=== PATIENT | male | born 1930 | race Caucasian/White ===

== ENCOUNTER 2018-12-05 08:44 | Observation (INO) ==
--- NOTE | 2018-12-05 08:56 | Emergency Department Note ---
ED Disposition Clinical Impression: Chest pain Qualifiers: Chest pain type: precordial pain Qualified Code(s): R07.2 - Precordial pain Disposition: Admitted as Observation Condition on Discharge: Good - Critical Care Critical Care Time: No Attestation: On , the high probability of a clinically significant, sudden or life threatening deterioration of the following system(s) required my full and direct attention, intervention and personal management. The time I documented below is in addition to time spent performing reported procedures but includes the following listed in this critical care notation. Medical Decision Making - Medical Records Medical records reviewed: Yes: I reviewed the patient's medical records. - Anthony Inquiry Pt receiving controlled substance: No Vital Signs: 12/05/18 08:45 12/05/18 09:45 12/05/18 10:30 Temperature 98.0 F Temperature Source Oral Pulse Rate [Right Brachial] 55 L 59 L 57 L Respiratory Rate 18 Blood Pressure [Right Arm] 137/82 126/71 120/83 Blood Pressure Mean [Right Arm] 100 89 95 Blood Pressure Source [Right Arm] Automatic Cuff Blood Pressure Position [Right Arm] Sitting 02 Sat by Pulse Oximetry 97 95 97 Oxygen Delivery Method Room Air 12/05/18 10:54 Temperature Temperature Source Pulse Rate [Right Brachial] 64 Respiratory Rate Blood Pressure [Right Arm] 119/83 Blood Pressure Mean [Right Arm] 95 Blood Pressure Source [Right Arm] Blood Pressure Position [Right Arm] 02 Sat by Pulse Oximetry 94 L Oxygen Delivery Method - Lab Data Lab results reviewed: Yes: I reviewed the patient's lab results. Lab Results 12/05/18 08:50: WBC 8.5, RBC 5.22, Hgb 15.6, Hct 45.3, MCV 86.8, MCH 29.9, MCHC 34.5, RDW 13.3, Plt Count 214, MPV 8.5, Neut % (Auto) 69.8, Lymph % (Auto) 21.1, [place] % (Auto) 6.9, Eos % (Auto) 1.3, Baso % (Auto) 0.9, Neut # (Auto) 5.9, Lymph # (Auto) 1.8, [place] # (Auto) 0.6, Eos # (Auto) 0.1, Baso # (Auto) 0.1 12/05/18 08:50: Sodium 139, Potassium 4.5, Chloride 102, Carbon Dioxide 30, Anion Gap 11.5, BUN 18, Creatinine 0.84, Estimated Creat Clear 57, Estimated GFR 86, Est GFR ( Amer) 104, Glucose 130 H, Calcium 8.8, Total Bilirubin 0.7, AST 20, ALT 23, Alkaline Phosphatase 65, Troponin I < 0.02, Total Protein 7.2, Albumin 4.1, Globulin 3.1, Albumin/Globulin Ratio 1.3, Lipase 80 12/05/18 08:50: D-Dimer 172 Result diagrams: 12/05/18 08:50 12/05/18 08:50 Orders (Tests/Meds): ED MEDICATIONS Discontinued Medications Generic Name Dose Route Start Last Admin Trade Name Freq PRN Reason Stop Dose Admin Aspirin 324 mg 12/05/18 08:52 12/05/18 09:12 Aspirin 81mg Chewable Tablet PO 12/05/18 08:53 324 mg ONCE ONE Administration Pantoprazole Sodium 40 mg 12/05/18 08:52 12/05/18 09:12 Protonix 40mg Vial IV 12/05/18 08:53 40 mg ONCE ONE Administration Sodium Chloride 8 ml 12/05/18 08:52 12/05/18 09:13 Saline Flush 10ml Syringe IV 12/05/18 08:53 8 ml ONCE ONE Administration - Radiology Data #1 Image(s): Chest Image Reviewed: Yes I have reviewed radiologist's interpretation Preliminary Findings: Abnormal (enlarged cardiac som) - ECG Data Tracing #1 I reviewed this ECG and interpreted as documented below: Normal Sinus Rhythm: Yes (no stemi, +lvh and pvc) Medical Decision Narrative: admit d/w Dr Mesa, differential includes acs and gerd General Adult HPI - General Chief complaint: Chest Pain Stated complaint: heartburn Time Seen by Provider: 12/05/18 08:53 Mode of Arrival: Family Vehicle Limitations: No Limitations Description of Symptoms (Recalled from ER Triage Doc. by RN): chest discomfort, heartburn all morning - History of Present Illness HPI narrative: mild to mod off and on anterior chest pain burning sensation for one day, nonrad, no fever, no NV, no injury, no hx NH - Related Data Allergies Allergy/AdvReac Type Severity Reaction Status Date / Time No Known Allergies Allergy Unknown Uncoded 06/24/17 15:22 [facility] History - Hepatitis A Screen Drug use history?: No High risk sexual behaviors?: No History of sexually transmitted infection?: No Currently employed?: No Childcare worker?: No Do you have indoor plumbing?: Yes Do you have electricity?: Yes Attestation statement:: This patient has been screened for Hepatitis A risk factors. ROS Obtained: Yes Systems reviewed as appropriate & no additional complaints - Constitutional Constitutional: Denies fever(s) - Eyes Eyes: Denies change in vision - ENT Ears, Nose, Mouth, and Throat: Denies hoarseness - Cardiovascular Cardiovascular: Reports chest pain - Respiratory Respiratory: No dyspnea - Gastrointestinal Gastrointestingal: Denies: abdominal pain - Musculoskeletal Musculoskeletal: Denies neck pain - Integumentary/Breasts Skin/Breast: Denies wounds - Neurologic Neurologic: Denies dizziness Physical Exam - General General appearance: alert, in no apparent distress - Head Head exam: normocephalic - Eye Eye exam: Present: normal appearance - ENT ENT exam: Present: normal exam - Neck Neck exam: Present: normal inspection - Chest Chest inspection: Present: normal inspection - Respiratory Respiratory exam: Present: normal lung sounds bilaterally - Cardiovascular Cardiovascular exam: Present: regular rate, normal rhythm - Abdominal Exam Abdominal exam: Present: soft. Absent: distention, tenderness - Extremities Exam Extremities exam: Present: normal inspection - Back Exam Back exam: Absent: vertebral tenderness - Neurological Exam Neurological exam: Present: alert, oriented X3 - Psychiatric Psychiatric exam: Present: normal affect, normal mood - Skin Skin exam: Present: warm, dry
[2018-12-05 09:11] LABS: Basophils # 0.1 K/mm3 (0-0.2); Basophils % 0.9 % (0.1-2.0); Eosinophils # 0.1 K/mm3 (0.0-0.4); Eosinophils % 1.3 % (0.1-12.0); Hematocrit 45.3 % (42.0-52.0); Hemoglobin 15.6 g/dL (14.1-18.0); Lymphocytes # 1.8 K/mm3 (0.7-4.5); Lymphocytes % 21.1 % (10-50); Mean Corpuscular HGB Conc 34.5 g/dL (31.8-35.4); Mean Corpuscular Hemoglobin 29.9 pg (27.0-31.2); Mean Corpuscular Volume 86.8 fl (80-94); Mean Platelet Volume 8.5 fl (7.4-10.4); Monocytes # 0.6 K/mm3 (0.1-1.0); Monocytes % 6.9 % (1.7-9.3); Neutrophils # 5.9 K/mm3 (1.8-7.8); Neutrophils % 69.8 % (37.0-80.0); Platelet Count 214 K/mm3 (142-424); Red Blood Count 5.22 M/mm3 (4.60-6.20); Red Cell Distribution Width 13.3 % (11.5-17.5); White Blood Count 8.5 K/mm3 (4.8-10.8)
[2018-12-05 09:23] LABS: Alanine Aminotransferase 23 U/L (12-78); Albumin Level 4.1 gm/dL (3.4-5.0); Albumin/Globulin Ratio 1.3 (1.1-1.8); Alkaline Phosphatase 65 U/L (46-116); Anion Gap 11.5 mEq/L (5-15); Aspartate Amino Transferase 20 U/L (15-37); Bilirubin,Total 0.7 mg/dL (0.2-1.0); Blood Urea Nitrogen 18 mg/dL (7-18); Calcium 8.8 mg/dL (8.5-10.1); Carbon Dioxide 30 mmol/L (21.0-32.0); Chloride 102 mmol/L (98-107); Globulin 3.1 gm/dl (1.3-3.2); Glucose 130 mg/dL (74-106); Lipase 80 u/L (73-393); Potassium 4.5 mmoL/L (3.5-5.1); Sodium 139 mmol/L (136-145); Total Protein,Serum 7.2 gm/dL (6.4-8.2)
--- NOTE | 2018-12-05 14:05 | History & Physical Report ---
*Admission Date: 12/05/18 *Chief complaint: Chest pain *History of present illness: This 88-year-old white male presented to the emergency room complaining of chest pain off and on for the past 2 days. He was admitted to rule out acute coronary syndrome. He has known aortic stenosis. This has been followed by Dr. Galvan in the past. The patient has had a recent glycohemoglobin of 6.2% indicating diabetes mellitus. He had documented episode of supraventricular tachycardia in 2013. He has hypothyroidism. [facility] History Medical History: Reports:: Heart Murmur, Hyperlipidemia, Hypertension *Have you ever received a pneumonia vaccine?: Yes *Have you received a flu vaccine this season?: Yes Other Surgeries: Yes: Hernia Repair, Other (prostate, vericose vein) - *Social History Educational Level: Attended Grade School Alcohol Intake: never *Occupational Status:: retired Housing: house Household Members: spouse *Travel in the last 8 weeks: None - Psychiatric History Expresses thoughts of harming self/others: None Suicide Plan Description: No Plan Family Hx:: Unable to obtain Review of Systems - Constitutional Denies body ache(s), Denies chills, Denies weakness - Eyes Denies change in vision - ENT Reports abnormal hearing, Reports hearing loss, Denies difficulty swallowing, Denies throat swelling - *Cardiovascular Reports chest pain, Reports chest pain at rest, Denies chest pain with activity, Denies irregular heart rhythm, Denies rapid, pounding, or irregular heartbeat - *Respiratory Denies chest congestion, Denies cough, Denies shortness of breath - *Gastrointestinal Reports heartburn, Denies abdominal pain, Denies change in bowel habits, Denies vomiting blood, Denies black, tarry stools, Denies nausea - *Genitourinary Denies difficulty urinating - *Musculoskeletal Denies abnormal walking - *Neurologic Denies dizziness Meds Home Medications Medication Instructions Recorded Confirmed Type Aspirin [Adult Low Dose Aspirin EC] 81 mg PO HS 12/05/18 12/05/18 History Atorvastatin Calcium [Atorvastatin 10 mg PO HS 12/05/18 12/05/18 History 10mg Tab] Levothyroxine Sodium 25 mcg PO DAILY 12/05/18 12/05/18 History [Levothyroxine 25mcg (0.025mg) Tab] Metoprolol Succinate 50 mg PO HS 12/05/18 12/05/18 History Allergies Allergy/AdvReac Type Severity Reaction Status Date / Time No Known Allergies Allergy Unknown Uncoded 06/24/17 15:22 Exam Vital signs and Labs for Last 24 Hours: Temp Pulse Resp BP Pulse Ox 97.9 F 67 17 150/93 H 98 12/05/18 11:40 12/05/18 11:40 12/05/18 11:40 12/05/18 11:40 12/05/18 11:40 Laboratory Results - last 24 hr 12/05/18 08:50: WBC 8.5, RBC 5.22, Hgb 15.6, Hct 45.3, MCV 86.8, MCH 29.9, MCHC 34.5, RDW 13.3, Plt Count 214, MPV 8.5, Neut % (Auto) 69.8, Lymph % (Auto) 21.1, [place] % (Auto) 6.9, Eos % (Auto) 1.3, Baso % (Auto) 0.9, Neut # (Auto) 5.9, Lymph # (Auto) 1.8, [place] # (Auto) 0.6, Eos # (Auto) 0.1, Baso # (Auto) 0.1 12/05/18 08:50: Sodium 139, Potassium 4.5, Chloride 102, Carbon Dioxide 30, Anion Gap 11.5, BUN 18, Creatinine 0.84, Estimated Creat Clear 57, Estimated GFR 86, Est GFR ( Amer) 104, Glucose 130 H, Calcium 8.8, Total Bilirubin 0.7, AST 20, ALT 23, Alkaline Phosphatase 65, Troponin I < 0.02, Total Protein 7.2, Albumin 4.1, Globulin 3.1, Albumin/Globulin Ratio 1.3, Lipase 80 12/05/18 08:50: D-Dimer 172 I & O for Last 24 hours: Intake & Output 12/03/18 12/04/18 12/05/18 12/06/18 11:59 11:59 11:59 11:59 Intake Total 360 / 360 Output Total 450 / 450 Balance -440 / -440 360 / 360 Weight 177 lb 8 oz - Constitutional no acute distress - *Routine HEENT Exam Head: Present: normocephalic Eye: Present: PERRL ENT: Present: mucous membranes moist - *Routine Neck Exam Present: supple. Absent: carotid bruit - Routine Chest/Breast/Axilla Exam Chest wall: Absent: tenderness - *Routine Respiratory Exam Present: CTA bilaterally. Absent: rales, wheezes - *Routine Cardiovascular Exam Present: RRR, murmur Comments: 3/6 high-pitched aortic murmur. No ectopics - *Routine Abdominal Exam Present: soft. Absent: tenderness - *Routine Extremities Exam Absent: edema - Routine Back/Spine/Pelvis Exam Back/Spine: Present: kyphosis (Mild dorsal kyphosis) - *Routine Skin Exam Present: intact - *Routine Neurological Exam Present: alert, oriented X3, normal speech. Absent: altered mental status Quite hard of hearing - Routine Psychiatric Exam Present: normal affect Assessment and Plan (1) Aortic stenosis Current visit: Yes Status: Acute Category: Medical Code(s): I35.0 - Nonrheumatic aortic (valve) stenosis (2) Hearing deficit Current visit: Yes Status: Acute Category: Medical Code(s): H91.90 - Unspecified hearing loss, unspecified ear (3) Type 2 diabetes mellitus Current visit: Yes Status: Acute Category: Medical Code(s): E11.9 - Type 2 diabetes mellitus without complications (4) Hypothyroidism (acquired) Current visit: Yes Status: Acute Category: Medical Code(s): E03.9 - Hypothyroidism, unspecified (5) Hypertension Current visit: Yes Status: Acute Category: Medical Code(s): I10 - Essential (primary) hypertension (6) Hyperlipidemia Current visit: Yes Status: Acute Category: Medical Code(s): E78.5 - Hyperlipidemia, unspecified (7) Chest pain Current visit: Yes Status: Acute Qualifiers: Chest pain type: precordial pain Qualified Code(s): R07.2 - Precordial pain Category: Medical Code(s): R07.9 - Chest pain, unspecified - Assessment and plan all Dx Assessment and Plan for all problems:: Cardiac telemetry. Serial troponins. The patient seems quite stable at this point.
[2018-12-06 06:32] LABS: Basophils # 0.1 K/mm3 (0-0.2); Basophils % 0.7 % (0.1-2.0); Eosinophils # 0.1 K/mm3 (0.0-0.4); Eosinophils % 1.7 % (0.1-12.0); Hematocrit 42.5 % (42.0-52.0); Hemoglobin 14.6 g/dL (14.1-18.0); Lymphocytes # 1.8 K/mm3 (0.7-4.5); Lymphocytes % 22.1 % (10-50); Mean Corpuscular HGB Conc 34.4 g/dL (31.8-35.4); Mean Corpuscular Volume 87.1 fl (80-94); Mean Platelet Volume 8.4 fl (7.4-10.4); Monocytes # 0.6 K/mm3 (0.1-1.0); Monocytes % 7.1 % (1.7-9.3); Neutrophils # 5.5 K/mm3 (1.8-7.8); Neutrophils % 68.4 % (37.0-80.0); Platelet Count 181 K/mm3 (142-424); Red Blood Count 4.88 M/mm3 (4.60-6.20); Red Cell Distribution Width 13.2 % (11.5-17.5); White Blood Count 8.1 K/mm3 (4.8-10.8)
[2018-12-06 06:37] LABS: Anion Gap 9.4 mEq/L (5-15); Calcium 8.8 mg/dL (8.5-10.1); Potassium 4.4 mmoL/L (3.5-5.1)
--- NOTE | 2018-12-06 10:46 | Progress Note ---
Internal Medicine - PN: Subj *Date: 12/06/18 *Time: 10:44 Interval history: Patient has done well overnight, no more chest discomfort or dyspepsia since starting Protonix. He is anxious to go home. Exam Vital signs and Labs for Last 24 Hours: Temp Pulse Resp BP Pulse Ox 98.3 F 84 18 136/78 95 12/06/18 07:14 12/06/18 08:00 12/06/18 07:14 12/06/18 07:14 12/06/18 07:14 Laboratory Results - last 24 hr 12/05/18 08:50: TSH 6.03 H 12/05/18 14:10: Troponin I < 0.02 12/05/18 17:30: Troponin I < 0.02 12/06/18 06:03: WBC 8.1, RBC 4.88, Hgb 14.6, Hct 42.5, MCV 87.1, MCH 30.0, MCHC 34.4, RDW 13.2, Plt Count 181, MPV 8.4, Neut % (Auto) 68.4, Lymph % (Auto) 22.1, [place] % (Auto) 7.1, Eos % (Auto) 1.7, Baso % (Auto) 0.7, Neut # (Auto) 5.5, Lymph # (Auto) 1.8, [place] # (Auto) 0.6, Eos # (Auto) 0.1, Baso # (Auto) 0.1 12/06/18 06:03: Sodium 140, Potassium 4.4, Chloride 105, Carbon Dioxide 30, Anion Gap 9.4, BUN 18, Creatinine 0.95, Estimated Creat Clear 61, Estimated GFR 75, Est GFR ( Amer) 91, Glucose 119 H, Calcium 8.8 Vital Signs - 24 hr 12/05/18 10:54 12/05/18 11:33 12/05/18 11:40 Temperature 98.0 F 97.9 F Pulse Rate 61 Pulse Rate [Left Radial] Pulse Rate [Right Brachial] 64 67 Respiratory Rate 15 17 Blood Pressure 119/75 Blood Pressure [Right Arm] 119/83 150/93 H 02 Sat by Pulse Oximetry 94 L 98 12/05/18 12:00 12/05/18 15:39 12/05/18 16:00 Temperature 98.3 F Pulse Rate 70 50 L Pulse Rate [Left Radial] Pulse Rate [Right Brachial] 58 L Respiratory Rate 16 Blood Pressure Blood Pressure [Right Arm] 117/60 02 Sat by Pulse Oximetry 96 12/05/18 19:58 12/05/18 20:00 12/06/18 00:00 Temperature 98.3 F 98.7 F Pulse Rate 50 L 60 Pulse Rate [Left Radial] 54 L 59 L Pulse Rate [Right Brachial] Respiratory Rate 18 18 Blood Pressure Blood Pressure [Right Arm] 100/62 L 104/67 L 02 Sat by Pulse Oximetry 94 L 94 L 95 12/06/18 03:53 12/06/18 04:00 12/06/18 07:14 Temperature 98.0 F 98.3 F Pulse Rate 50 L Pulse Rate [Left Radial] 55 L 76 Pulse Rate [Right Brachial] Respiratory Rate 17 18 Blood Pressure Blood Pressure [Right Arm] 128/72 136/78 02 Sat by Pulse Oximetry 95 95 12/06/18 08:00 Temperature Pulse Rate 84 Pulse Rate [Left Radial] Pulse Rate [Right Brachial] Respiratory Rate Blood Pressure Blood Pressure [Right Arm] 02 Sat by Pulse Oximetry I & O for Last 24 hours: Intake & Output 12/03/18 12/04/18 12/05/18 12/06/18 23:59 23:59 23:59 23:59 Intake Total 610 / 610 360 / 360 Output Total 800 / 800 975 / 975 Balance -190 / -190 -615 / -615 Weight 177 lb 8 oz 186 lb 2 oz - Constitutional no acute distress - *Routine HEENT Exam Head: Present: normocephalic Eye: Present: EOMI ENT: Present: mucous membranes moist - *Routine Neck Exam Present: supple. Absent: lymphadenopathy - *Routine Respiratory Exam Present: CTA bilaterally - *Routine Cardiovascular Exam Present: RRR, murmur (systolic) - *Routine Abdominal Exam Present: soft, normoactive bowel sounds. Absent: tenderness - *Routine Extremities Exam Absent: cyanosis, clubbing, edema - *Routine Skin Exam Present: warm. Absent: rash - *Routine Neurological Exam Present: alert, oriented X3 Assessment and Plan (1) Aortic stenosis Current visit: Yes Status: Acute Category: Medical Code(s): I35.0 - Nonrheumatic aortic (valve) stenosis (2) Hearing deficit Current visit: Yes Status: Acute Category: Medical Code(s): H91.90 - Unspecified hearing loss, unspecified ear (3) Type 2 diabetes mellitus Current visit: Yes Status: Acute Category: Medical Code(s): E11.9 - Type 2 diabetes mellitus without complications (4) Hypothyroidism (acquired) Current visit: Yes Status: Acute Category: Medical Code(s): E03.9 - Hypothyroidism, unspecified (5) Hypertension Current visit: Yes Status: Acute Category: Medical Code(s): I10 - Essential (primary) hypertension (6) Hyperlipidemia Current visit: Yes Status: Acute Category: Medical Code(s): E78.5 - Hyperlipidemia, unspecified (7) Chest pain Current visit: Yes Status: Acute Qualifiers: Chest pain type: precordial pain Qualified Code(s): R07.2 - Precordial pain Category: Medical Code(s): R07.9 - Chest pain, unspecified (8) Dyspepsia Current visit: Yes Status: Acute Category: Medical Code(s): R10.13 - Epigastric pain - Assessment and plan all Dx Assessment and Plan for all problems:: Plan discharge home today with Protonix and increased dose of Levothyroxine, office f/u in 8 days.
--- NOTE | 2018-12-06 10:49 | Pharmacy Consult Notes ---
[facility] Pharmacy VTE Monitoring - Patient Demographics Admission date: 12/05/18 Report Date: 12/06/18 Time: 10:49 Allergies/Adverse Reactions: Patient Allergies No Known Allergies Allergy (Unknown, Uncoded 06/24/17 15:22) Height: 1.83 m Weight: 84.425 kg Patient Problems: Current Active Problems (Updated 12/06/18 @ 10:46 by Micha Jenkins MD) Chest pain (Acute) Aortic stenosis (Acute) Hearing deficit (Acute) Type 2 diabetes mellitus (Acute) Hypothyroidism (acquired) (Acute) Hypertension (Acute) Hyperlipidemia (Acute) Dyspepsia (Acute) - VTE Risk Labs: VTE Related Lab Results Hgb 14.6 g/dL (14.1-18.0) 12/06/18 06:03 Hct 42.5 % (42.0-52.0) 12/06/18 06:03 Plt Count 181 K/mm3 (142-424) 12/06/18 06:03 BUN 18 mg/dL (7-18) 12/06/18 06:03 Creatinine 0.95 mg/dL (0.70-1.30) 12/06/18 06:03 Estimated Creat Clear 61 mL/min (50-200) 12/06/18 06:03 Was VTE Risk Assessment Performed: Yes VTE Score: 2 VTE Risk Level: Very Low Risk - Prophylaxis VTE Prophylaxis Ordered?: Yes Types of VTE Prophylaxis: TEDS Knee High Location of Applied Device: Bilateral Lower Extremeties
--- NOTE | 2018-12-07 19:12 | Discharge Summary ---
General - General Admission date:: 12/05/18 <Micha Jenkins - 12/08/18 08:30> 12/05/18 <Shellie Sloan - 12/07/18 19:11> Discharge date: 12/06/18 <Shellie Sloan - 12/07/18 19:15> HPI HPI: Mr Almodovra is an 88-year-old white male who presented to the emergency room complaining of chest pain off and on for the past 2 days. He was admitted to rule out acute coronary syndrome. He was known to have aortic stenosis followed by Dr. Galvan in the past and hypothyroidism. The patient had a recent glycohemoglobin of 6.2% indicating diabetes mellitus. He had documented episodes of supraventricular tachycardia in 2013. <Shellie Sloan - 12/07/18 19:15> Hospital Course Hospital Course: Patient did well overnight. He had no further chest discomfort or dyspepsia since starting Protonix. He was anxious to go home. Serial Tropnin's were norml. TSH was slightly elevated at 6.03 He was thus discharged home on 12/06/18 in stable and satisfactory condition with Protonix and increased dose of Levothyroxine with office f/u in 8 days. <Shellie Sloan - 12/07/18 19:25> Objective Vital signs: Temp Pulse Resp BP Pulse Ox 98.4 F 98 H 17 121/91 H 96 12/06/18 11:41 12/06/18 11:41 12/06/18 11:41 12/06/18 11:41 12/06/18 11:41 <Micha Jenkins - 12/08/18 08:30> Temp Pulse Resp BP Pulse Ox 98.4 F 98 H 17 121/91 H 96 12/06/18 11:41 12/06/18 11:41 12/06/18 11:41 12/06/18 11:41 12/06/18 11:41 <Shellie Sloan - 12/07/18 19:25> Narrative: Exam Vital signs and Labs for Last 24 Hours: Temp Pulse Resp BP Pulse Ox 98.3 F 84 18 136/78 95 12/06/18 07:14 12/06/18 08:00 12/06/18 07:14 12/06/18 07:14 12/06/18 07:14 Laboratory Results - last 24 hr 12/05/18 08:50: TSH 6.03 H 12/05/18 14:10: Troponin I < 0.02 12/05/18 17:30: Troponin I < 0.02 12/06/18 06:03: WBC 8.1, RBC 4.88, Hgb 14.6, Hct 42.5, MCV 87.1, MCH 30.0, MCHC 34.4, RDW 13.2, Plt Count 181, MPV 8.4, Neut % (Auto) 68.4, Lymph % (Auto) 22.1, [place] % (Auto) 7.1, Eos % (Auto) 1.7, Baso % (Auto) 0.7, Neut # (Auto) 5.5, Lymph # (Auto) 1.8, [place] # (Auto) 0.6, Eos # (Auto) 0.1, Baso # (Auto) 0.1 12/06/18 06:03: Sodium 140, Potassium 4.4, Chloride 105, Carbon Dioxide 30, Anion Gap 9.4, BUN 18, Creatinine 0.95, Estimated Creat Clear 61, Estimated GFR 75, Est GFR ( Amer) 91, Glucose 119 H, Calcium 8.8 Vital Signs - 24 hr 12/05/18 10:54 12/05/18 11:33 12/05/18 11:40 Temperature 98.0 F 97.9 F Pulse Rate 61 Pulse Rate [Left Radial] Pulse Rate [Right Brachial] 64 67 Respiratory Rate 15 17 Blood Pressure 119/75 Blood Pressure [Right Arm] 119/83 150/93 H 02 Sat by Pulse Oximetry 94 L 98 12/05/18 12:00 12/05/18 15:39 12/05/18 16:00 Temperature 98.3 F Pulse Rate 70 50 L Pulse Rate [Left Radial] Pulse Rate [Right Brachial] 58 L Respiratory Rate 16 Blood Pressure Blood Pressure [Right Arm] 117/60 02 Sat by Pulse Oximetry 96 12/05/18 19:58 12/05/18 20:00 12/06/18 00:00 Temperature 98.3 F 98.7 F Pulse Rate 50 L 60 Pulse Rate [Left Radial] 54 L 59 L Pulse Rate [Right Brachial] Respiratory Rate 18 18 Blood Pressure Blood Pressure [Right Arm] 100/62 L 104/67 L 02 Sat by Pulse Oximetry 94 L 94 L 95 12/06/18 03:53 12/06/18 04:00 12/06/18 07:14 Temperature 98.0 F 98.3 F Pulse Rate 50 L Pulse Rate [Left Radial] 55 L 76 Pulse Rate [Right Brachial] Respiratory Rate 17 18 Blood Pressure Blood Pressure [Right Arm] 128/72 136/78 02 Sat by Pulse Oximetry 95 95 12/06/18 08:00 Temperature Pulse Rate 84 Pulse Rate [Left Radial] Pulse Rate [Right Brachial] Respiratory Rate Blood Pressure Blood Pressure [Right Arm] 02 Sat by Pulse Oximetry I & O for Last 24 hours: Intake & Output 12/03/18 12/04/18 12/05/18 12/06/18 23:59 23:59 23:59 23:59 Intake Total 610 / 610 360 / 360 Output Total 800 / 800 975 / 975 Balance -190 / -190 -615 / -615 Weight 177 lb 8 oz 186 lb 2 oz - Constitutional no acute distress - *Routine HEENT Exam Head: Present: normocephalic Eye: Present: EOMI ENT: Present: mucous membranes moist - *Routine Neck Exam Present: supple. Absent: lymphadenopathy - *Routine Respiratory Exam Present: CTA bilaterally - *Routine Cardiovascular Exam Present: RRR, murmur (systolic) - *Routine Abdominal Exam Present: soft, normoactive bowel sounds. Absent: tenderness - *Routine Extremities Exam Absent: cyanosis, clubbing, edema - *Routine Skin Exam Present: warm. Absent: rash - *Routine Neurological Exam Present: alert, oriented X3 <Shellie Sloan - 12/07/18 19:25> Results Completed studies during hospitalization [Text1]: 12/05/18 CXR IMPRESSION: 1. Cardiomegaly with right basilar atelectasis. 2. Possible left upper lobe nodule <Shellie Sloan - 12/07/18 19:17> DS: Diagnosis - Discharge Diagnosis (1) Aortic stenosis Status: Acute (2) Hearing deficit Status: Acute (3) Hypothyroidism (acquired) Status: Acute (4) Hypertension Status: Acute (5) Hyperlipidemia Status: Acute (6) Chest pain Status: Acute (7) Dyspepsia Status: Acute (8) IFG (impaired fasting glucose) Status: Acute <Micha Jenkins - 12/08/18 08:30> (1) Aortic stenosis Status: Acute (2) Hearing deficit Status: Acute (3) Type 2 diabetes mellitus Status: Acute (4) Hypothyroidism (acquired) Status: Acute (5) Hypertension Status: Acute (6) Hyperlipidemia Status: Acute (7) Chest pain Status: Acute (8) Dyspepsia Status: Acute <Shellie Sloan - 12/07/18 19:19> Discharge Plan - Patient Discharge Instructions ACTIVITY: Continue current activity <Shellie Sloan - 12/07/18 19:11> DIET: continue same diet <Shellie Sloan - 12/07/18 19:11> Patient Instructions: DI for Dyspepsia, DI for Chest Pain <Micha Jenkins - 12/08/18 08:30> Forms: <Micha Jenkins - 12/08/18 08:30> - Follow up Plan Follow up with: Micha Jenkins MD [Primary Care Provider] - 12/14/18 <Micha Jenkins - 12/08/18 08:30> Disposition: Home, Self-Care <Micha Jenkins - 12/08/18 08:30> Home Medications: Home Medications Medication Instructions Recorded Confirmed Type Aspirin [Adult Low Dose Aspirin EC] 81 mg PO HS 12/05/18 12/05/18 History Atorvastatin Calcium [Atorvastatin 10 mg PO HS 12/05/18 12/05/18 History 10mg Tab] Metoprolol Succinate 50 mg PO HS 12/05/18 12/05/18 History Levothyroxine Sodium 50 mcg PO DAILY #30 tab 12/06/18 Rx [Levothyroxine 50mcg (0.05mg) Tab] Pantoprazole Sodium [Protonix 40mg 40 mg PO DAILY 30 Days #30 tab 12/06/18 Rx tablet] <Micha Jenkins - 12/08/18 08:30> Prescriptions/Medication Reconciliation: New Levothyroxine Sodium [Levothyroxine 50mcg (0.05mg) Tab] 50 mcg PO DAILY #30 tab Pantoprazole Sodium [Protonix 40mg tablet] 40 mg PO DAILY 30 Days #30 tab Continued Metoprolol Succinate 50 mg PO HS Aspirin [Adult Low Dose Aspirin EC] 81 mg PO HS Atorvastatin Calcium [Atorvastatin 10mg Tab] 10 mg PO HS Discontinued Levothyroxine Sodium [Levothyroxine 25mcg (0.025mg) Tab] 25 mcg PO DAILY <Micha Jenkins - 12/08/18 08:30>
== END 2018-12-06 12:52 | disposition home or self-care (01) ==
LOC: 2ND 08:44 → ER 08:44 → 2ND 12:15
PROVIDERS: ADMIT Family Medicine; ATTEND Family Medicine
DX: I10 Essential (primary) hypertension; E03.9 Hypothyroidism, unspecified; R10.13 Epigastric pain; I35.0 Nonrheumatic aortic (valve) stenosis; H91.90 Unspecified hearing loss, unspecified ear; E78.5 Hyperlipidemia, unspecified; Z79.899 Other long term (current) drug therapy; E11.9 Type 2 diabetes mellitus without complications
CPT/HCPCS: 36415; 71010; 71045; 80048; 80053; 83690; 84443; 84484; 85025; 85378; 93005; 96374; 99284; G0378